=== PATIENT | female | born 1965 | race Caucasian/White ===

== ENCOUNTER → 2020-07-23 08:22 | Outpatient (CLI) | payer OTHER, SELFPAY ==
--- NOTE | 2020-07-23 | DI.MG.S_ITS ---
BILATERAL DIGITAL SCREENING MAMMOGRAM 3D/2D WITH CAD: 07/23/2020 CLINICAL: Routine screening. Family history of breast cancer. Comparison is made to exams dated: 10/20/2017 mammogram, 06/17/2016 mammogram, and 10/28/2014 mammogram - [facility]. The tissue of both breasts is heterogeneously dense. This may lower the sensitivity of mammography. Current study was also evaluated with a Computer Aided Detection (CAD) system. There are grouped fine calcifications in the right breast central to the nipple anterior depth. No other significant masses, calcifications, or other findings are seen in either breast. IMPRESSION: INCOMPLETE: NEEDS ADDITIONAL IMAGING EVALUATION The grouped fine calcifications in the right breast are indeterminate. Mediolateral, spot magnification, and additional views are recommended. This exam was interpreted at Station ID: [id number]. NOTE: For mammograms, a report in lay terms will be sent to the patient. Approximately 15% of breast malignancies will not be visualized mammographically. In the management of a palpable breast mass, a negative mammogram must not discourage biopsy of a clinically suspicious lesion. Electronically Signed By: Jaiden rainey/endy:07/23/2020 17:08:25 letter sent: Additional Imaging Needed ACR BI-RADS Category 0: Incomplete 3340F
== END ==
PROVIDERS: PCP Student in an Organized Health Care Education/Training Program; Referring Provider Student in an Organized Health Care Education/Training Program; Visit Provider Student in an Organized Health Care Education/Training Program
DX: Z12.31 Encounter for screening mammogram for malignant neoplasm of breast (principal); Z80.3 Family history of malignant neoplasm of breast
CPT/HCPCS: 77063; 77067

== ENCOUNTER → 2020-08-21 08:34 | Outpatient (CLI) | payer OTHER, SELFPAY ==
--- NOTE | 2020-08-21 | DI.MG.S_ITS ---
UNILATERAL RIGHT DIGITAL DIAGNOSTIC MAMMOGRAM 3D/2D WITH ADDITIONAL VIEWS: 08/21/2020 CLINICAL: Additional evaluation requested from prior study. Comparison is made to exams dated: 07/23/2020 mammogram - [facility], 10/20/2017 mammogram, and 06/17/2016 mammogram - [facility]. The tissue of right breast is heterogeneously dense. This may lower the sensitivity of mammography. There are grouped fine punctate calcifications in the right breast central to the nipple anterior depth. No other significant masses or calcifications are seen in the breast. IMPRESSION: PROBABLY BENIGN The grouped fine punctate calcifications in the right breast are probably benign. A follow-up mammogram in 6 months is recommended to demonstrate stability. This exam was interpreted at Station ID: [id number]. NOTE: For mammograms, a report in lay terms will be sent to the patient. Approximately 15% of breast malignancies will not be visualized mammographically. In the management of a palpable breast mass, a negative mammogram must not discourage biopsy of a clinically suspicious lesion. Electronically Signed By: Gricel hitchcock/:08/21/2020 09:20:23 letter sent: Followup Recommended ACR BI-RADS Category 3: Probably benign 3343F
== END ==
PROVIDERS: PCP Student in an Organized Health Care Education/Training Program; Referring Provider Student in an Organized Health Care Education/Training Program; Visit Provider Student in an Organized Health Care Education/Training Program
DX: R92.1 Mammographic calcification found on diagnostic imaging of breast (principal)
CPT/HCPCS: 77065; G0279

== ENCOUNTER → 2021-02-16 12:10 | Outpatient (CLI) | payer OTHER, SELFPAY ==
[2021-02-16] MEDS: COVID-19 VACC #1, MRNA(MOD) 100 MCG/0.5 ML VIAL IM (12:22)
== END ==
PROVIDERS: Visit Provider Internal Medicine
DX: Z23 Encounter for immunization (principal)
CPT/HCPCS: 0011A; 91301

== ENCOUNTER → 2021-03-17 09:32 | Outpatient (CLI) | payer OTHER, SELFPAY ==
[2021-03-17] MEDS: COVID-19 VACC #2, MRNA(MOD) 100 MCG/0.5 ML VIAL IM (09:39)
== END ==
PROVIDERS: PCP Student in an Organized Health Care Education/Training Program; Visit Provider Internal Medicine
DX: Z23 Encounter for immunization (principal)
CPT/HCPCS: 0012A; 91301

== ENCOUNTER → 2021-04-13 12:11 | Outpatient (CLI) | payer OTHER, SELFPAY ==
--- NOTE | 2021-04-13 | DI.MG.S_ITS ---
UNILATERAL RIGHT DIGITAL DIAGNOSTIC MAMMOGRAM 3D/2D SHORT-TERM FOLLOW-UP: 04/13/2021 CLINICAL: Short term follow up of the right breast. Comparison is made to exams dated: 08/21/2020 mammogram, 07/23/2020 mammogram - [facility], and 10/20/2017 mammogram - [facility]. The tissue of right breast is heterogeneously dense. This may lower the sensitivity of mammography. There are grouped fine punctate calcifications in the right breast central to the nipple anterior depth. No other significant masses or calcifications are seen in the breast. IMPRESSION: PROBABLY BENIGN The grouped fine punctate calcifications in the right breast are stable and probably benign. A follow-up mammogram in 6 months is recommended to demonstrate stability. Left breast mammogram will also be due. Exam findings were conveyed to the patient. This exam was interpreted at Station ID: [id number]. NOTE: For mammograms, a report in lay terms will be sent to the patient. Approximately 15% of breast malignancies will not be visualized mammographically. In the management of a palpable breast mass, a negative mammogram must not discourage biopsy of a clinically suspicious lesion. Electronically Signed By: Don Chua M.D. [facility] [place]:04/13/2021 13:13:47 letter sent: Followup Recommended ACR BI-RADS Category 3: Probably benign 3343F
== END ==
PROVIDERS: PCP Student in an Organized Health Care Education/Training Program; Referring Provider Student in an Organized Health Care Education/Training Program; Visit Provider Student in an Organized Health Care Education/Training Program
DX: R92.8 Other abnormal and inconclusive findings on diagnostic imaging of breast (principal); R92.1 Mammographic calcification found on diagnostic imaging of breast
CPT/HCPCS: 77065; G0279

== ENCOUNTER → 2021-09-16 09:17 | Outpatient (CLI) | payer OTHER, SELFPAY ==
--- NOTE | 2021-09-16 | DI.MG.S_ITS ---
BILATERAL DIGITAL DIAGNOSTIC MAMMOGRAM 3D/2D SHORT-TERM FOLLOW-UP: 09/16/2021 CLINICAL: Short term follow up of the right breast, due for bilateral imaging. Comparison is made to exams dated: 04/13/2021 mammogram, 08/21/2020 mammogram, and 07/23/2020 mammogram - [facility]. The tissue of both breasts is heterogeneously dense. This may lower the sensitivity of mammography. There are stable grouped fine punctate calcifications in the right breast central to the nipple anterior depth. No other significant masses, calcifications, or other findings are seen in either breast. IMPRESSION: PROBABLY BENIGN The stable grouped fine punctate calcifications in the right breast are probably benign. A follow-up mammogram in 12 months is recommended. This exam was interpreted at Station ID: [id number]. NOTE: For mammograms, a report in lay terms will be sent to the patient. Approximately 15% of breast malignancies will not be visualized mammographically. In the management of a palpable breast mass, a negative mammogram must not discourage biopsy of a clinically suspicious lesion. Electronically Signed By: Jones Cm M.D., jr/endy:09/16/2021 09:52:41 letter sent: Followup Recommended ACR BI-RADS Category 3: Probably benign 3343F
== END ==
PROVIDERS: PCP Student in an Organized Health Care Education/Training Program; Referring Provider Student in an Organized Health Care Education/Training Program; Visit Provider Student in an Organized Health Care Education/Training Program
DX: R92.8 Other abnormal and inconclusive findings on diagnostic imaging of breast (principal); R92.1 Mammographic calcification found on diagnostic imaging of breast
CPT/HCPCS: 77066; G0279

== ENCOUNTER → 2022-06-28 12:34 | Outpatient (CLI) | payer OTHER, SELFPAY ==
[2022-06-28 14:21] LABS: Influenza A - CEPHEID Flu A NEGATIVE (NEGATIVE); Influenza B - CEPHEID Flu B NEGATIVE (NEGATIVE)
[2022-06-28 14:31] LABS: COVID-19 CEPHEID PCR (VTM/NP) Negative (Negative)
== END ==
PROVIDERS: PCP Student in an Organized Health Care Education/Training Program; Visit Provider Student in an Organized Health Care Education/Training Program
DX: R11.0 Nausea (principal); J31.2 Chronic pharyngitis
CPT/HCPCS: 0240U; 87070; 87077; 87147

== ENCOUNTER → 2022-08-23 13:14 | Outpatient (CLI) | payer OTHER, SELFPAY ==
--- NOTE | 2022-08-23 | DI.RAD.S_ITS ---
PROCEDURE: XR CHEST 2V INDICATIONS: CHEST PAIN TECHNIQUE: 2 views of the chest were acquired. COMPARISON: None. FINDINGS: Surgical changes and devices: None. Lungs and pleura: Lungs are clear. No pleural effusions or pneumothorax. Mediastinum: Mediastinal contours are normal. Heart size is normal. Bones and chest wall: No suspicious bony abnormalities. Soft tissues appear unremarkable. IMPRESSION: No acute cardiopulmonary disease. Dictated by: Ricardo Lyon M.D. on 08/23/2022 at 17:00 Approved by: Ricardo Lyon M.D. on 08/23/2022 at 17:00
== END ==
PROVIDERS: PCP Family Medicine; Referring Provider Internal Medicine; Visit Provider Internal Medicine
DX: R07.89 Other chest pain (principal)
CPT/HCPCS: 71046

== ENCOUNTER → 2022-09-21 08:16 | Outpatient (CLI) | payer OTHER, SELFPAY | PROVIDERS: PCP Family Medicine; Referring Provider Family Medicine; Visit Provider Family Medicine | DX: Z12.31 Encounter for screening mammogram for malignant neoplasm of breast (principal) ==

== ENCOUNTER → 2022-09-22 07:40 | Outpatient (CLI) | payer OTHER, SELFPAY ==
--- NOTE | 2022-09-22 | DI.MG.S_ITS ---
BILATERAL DIGITAL DIAGNOSTIC MAMMOGRAM 3D/2D SHORT-TERM FOLLOW-UP: 09/22/2022 CLINICAL: Short term follow up of the left breast, due for bilateral imaging. Comparison is made to exams dated: 09/16/2021 mammogram, 04/13/2021 mammogram, and 08/21/2020 mammogram - [facility]. Both breasts are heterogeneously dense, which may obscure small masses (category c / 51-75% glandular tissue). There are stable grouped fine punctate calcifications in the right breast central to the nipple anterior depth. No other significant masses, calcifications, or other findings are seen in either breast. IMPRESSION: BENIGN There is no mammographic evidence of malignancy. Stable grouped fine punctate calcifications in the right breast central to the nipple anterior depth have demonstrated two years of stability and is consistent with a benign process. Return to annual mammogram screening schedule is recommended. Findings and recommendations were conveyed to the patient during today's evaluation. Based on the Tyrer Cuzick model (a risk assessment model) the patient's lifetime risk is 12.9% and her 10 year risk is 3.7%. According to the ACR, ACS, and NCCN guidelines, an annual breast MRI exam along with mammogram is recommended if the patient's lifetime risk is 20% or greater. This exam was interpreted at Station ID: [id number]. NOTE: For mammograms, a report in lay terms will be sent to the patient. Approximately 15% of breast malignancies will not be visualized mammographically. In the management of a palpable breast mass, a negative mammogram must not discourage biopsy of a clinically suspicious lesion. Electronically Signed By: Dwight Rodrigez M.D. aty/:09/22/2022 08:44:55 letter sent: Normal Exam ACR BI-RADS Category 2: Benign Finding(s) 3342F
== END ==
PROVIDERS: PCP Family Medicine; Referring Provider Family Medicine; Visit Provider Family Medicine
DX: R92.8 Other abnormal and inconclusive findings on diagnostic imaging of breast (principal); R92.1 Mammographic calcification found on diagnostic imaging of breast
CPT/HCPCS: 77066; G0279

== ENCOUNTER → 2022-10-12 14:33 | Outpatient (CLI) | payer OTHER, SELFPAY ==
[2022-10-12 15:34] LABS: COVID19 -Nasal RAPID Negative (Negative)
--- NOTE | 2022-10-13 08:56 | DI.NM.S_ITS ---
DATE OF SERVICE: 10/12/2022 PROCEDURE: Exercise treadmill stress testing without imaging. ORDERING PROVIDER: PREETI Bateman. INDICATIONS: The patient is a 56-year-old female with exertional dyspnea and atypical chest discomfort, who requires preoperative evaluation prior to surgery. FINDINGS: 1. The patient was able to exercise for 6 minutes, 27 seconds on a standard Gabino protocol suggesting mildly-moderately reduced exercise capacity with an DARYL of +11 %, achieving 7.0 METs. 2. She had a slightly accentuated heart rate response to exercise with a resting heart rate of around 100 BPM increasing to 124 BPM after 1 minute of exercise, reaching a maximum heart rate of 169 BPM (102% of her predicted maximum). She had a normal blood pressure response. 3. She had no chest discomfort or anginal symptoms. 4. Her resting ECG shows sinus rhythm with normal ST segments. There are no significant ST segment shifts or arrhythmias with stress. IMPRESSION: 1. Normal exercise treadmill study for ischemia. 2. Mild-moderately reduced exercise capacity without angina or arrhythmias. She had an accentuated heart rate response to exercise, suggesting probable cardiovascular deconditioning. Hannah Rios - ELIZABETH/tonia/JOSE ENRIQUE doc#: [id number]/job#: [id number] dd: 10/12/2022 16:56:00 dt: 10/12/2022 17:22:00 DICTATING /COPIES TO: Francisco Austin MD; PREETI Bateman COPIES MNE: TRINY;
== END ==
PROVIDERS: Specialist; PCP Family Medicine; Referring Provider Internal Medicine; Visit Provider Internal Medicine
DX: R07.89 Other chest pain (principal); R06.00 Dyspnea, unspecified; Z13.820 Encounter for screening for osteoporosis; Z78.0 Asymptomatic menopausal state; Z20.822 Contact with and (suspected) exposure to COVID-19
CPT/HCPCS: 77080; 87635; 93017

== ENCOUNTER → 2022-10-25 13:45 | Outpatient (ROUT) | payer OTHER, SELFPAY ==
[2022-10-25 14:56] LABS: COVID-19 CEPHEID PCR (VTM/NP) Negative (Negative)
== END ==
PROVIDERS: Visit Provider Otolaryngology
DX: Z20.822 Contact with and (suspected) exposure to COVID-19 (principal)
CPT/HCPCS: U0003; U0005

== ENCOUNTER 2022-10-27 08:24 | Day surgery (SDC) | payer OTHER, SELFPAY ==
[2022-10-26 10:45] VITALS: BMI 34.8
[2022-10-27 09:05] VITALS: BP 129/83; PULSE 91; RESP 16; TEMP 36.5; O2SAT 99; BMI 35.2
--- NOTE | 2022-10-27 10:23 | PM.PREOP ---
Pre-operative Note Interval Note History & Physical reviewed/Exam performed by Physician: Yes Changes to H&P: Yes H&P completed within 30 days and has changed as indicated here:: New dry cough over the last 48 hours but nonproductive, no fever, mild sore throat consistent with tonsillitis in the past. COVID negative. After discussion of the material risks benefits complications and alternatives, patient feel strongly she would like to proceed with surgery as scheduled.
--- NOTE | 2022-10-27 10:25 | P.OP_ITS ---
Operative Date/Time/Diagnoses Date of procedure: 10/27/22 Pre-op diagnosis: Chronic tonsillitis, tonsil stones, throat pain, JORGE ALBERTO, factor 5 Leiden Post-op diagnosis: same Procedure & Clinicians Procedure: Tonsillectomy Same procedure as scheduled: Yes Indications: 57-year-old female with above diagnoses incompletely managed with medical therapy presents for the above procedure. Following discussion of the material risks benefits complications and alternatives, she elected to proceed. Surgeon: Tj Mccall Click Yes if Unassisted: Yes Anesthesia Type: General and Local Operative Notes Findings: 2+ tonsils with stones, small abscess within RIGHT, no significant adenoid tissue, intact palate, single uvula Estimated Blood Loss (mL): 5 Procedure in detail: Following identification and confirmation of consent the patient was brought to the operating room suite and placed in the supine position. General endotracheal anesthesia was administered. A head wrap, shoulder roll, and mouth gag were placed and a red rubber catheter was inserted through the nostril and out the mouth to retract the soft palate. There was no significant adenoid t issue. The left tonsil was retracted medially and suction electrocautery on a setting of 30 was used to dissect the tonsil in a subcapsular plane, followed by hemostasis with the same. This process was repeated on the right side with identical findings. The tonsillar fossae were superficially infiltrated bilaterally with 1% lidocaine 1 100,000 epinephrine. Mouth gag and rubber catheter were removed and the patient was extubated in the operating room and taken to the recovery room in stable condition without known complication. Complications: none Post-operative Condition: stable Disposition: same day surgery Plan for aftercare: Push fluids, alternate Tylenol and Advil every 3 hours for baseline pain control, oxycodone for breakthrough pain. Soft diet 2 full weeks, no heavy lifting or straining 2 weeks.
[2022-10-27] MEDS: LACTATED RINGERS 1,000 ML 42 ML IV (10:30)
--- NOTE | 2022-10-27 10:48 | SUR.OPER ---
Supine on padded OR bed, head on donut pillow, arms secured on padded arm boards at <90 degrees abduction, legs uncrossed, safety belt at thigh,
[2022-10-27] MEDS: LIDOCAINE 1% W/EPI 20 ML INJ (10:53)
[2022-10-27 11:09] VITALS: BP 142/85; PULSE 94; RESP 16; TEMP 36.3; O2SAT 98
[2022-10-27 11:18] VITALS: BP 117/74; PULSE 92; RESP 16; O2SAT 98
[2022-10-27 11:25] VITALS: BP 120/70; PULSE 84; RESP 16; O2SAT 98
[2022-10-27] MEDS: OXYCODONE/ACETAMINOPHEN 5/325 TABLET 1 TAB PO (11:32)
[2022-10-27 11:40] VITALS: BP 117/60; PULSE 70; RESP 16; TEMP 36.8; O2SAT 98
[2022-10-27 11:56] VITALS: BP 129/83; PULSE 91; RESP 16; TEMP 36.5; O2SAT 99
== END 2022-10-27 12:06 | disposition home or self-care (01) ==
PROVIDERS: PCP Family Medicine; Referring Provider Otolaryngology; Visit Provider Otolaryngology
PROC: (CPT 42826; principal; 2022-10-27 09:30)
DX: J35.01 Chronic tonsillitis (principal); J35.8 Other chronic diseases of tonsils and adenoids; G47.33 Obstructive sleep apnea (adult) (pediatric); D68.51 Activated protein C resistance
CPT/HCPCS: 42826; J0330; J1100; J2250; J2405; J2704; J3010

== ENCOUNTER → 2023-03-12 11:11 | Outpatient (CLI) | payer OTHER, SELFPAY ==
[2023-03-12 11:59] LABS: Influenza A - CEPHEID Flu A NEGATIVE (NEGATIVE); Influenza B - CEPHEID Flu B NEGATIVE (NEGATIVE); Respiratory Syncytial Virus Negative (Negative)
[2023-03-12 12:00] LABS: COVID-19 CEPHEID 4-PLEX PCR Negative (Negative)
== END ==
PROVIDERS: PCP Family Medicine; Visit Provider Nurse Practitioner Family
DX: J02.9 Acute pharyngitis, unspecified (principal)
CPT/HCPCS: 0241U; 87070

== ENCOUNTER → 2023-11-02 10:03 | Outpatient (CLI) | payer OTHER, SELFPAY ==
--- NOTE | 2023-11-02 | DI.MG.S_ITS ---
BILATERAL DIGITAL SCREENING MAMMOGRAM 3D/2D WITH CAD: 11/02/2023 CLINICAL: Routine screening. Family history of breast cancer. Comparison is made to exams dated: 09/22/2022 mammogram, 09/16/2021 mammogram, and 07/23/2020 mammogram - [facility]. Both breasts are heterogeneously dense, which may obscure small masses (category c / 51-75% glandular tissue). Current study was also evaluated with a Computer Aided Detection (CAD) system. There are benign post operative findings in the left breast. No significant masses, calcifications, or other findings are seen in either breast. There has been no significant interval change. IMPRESSION: BENIGN There is no mammographic evidence of malignancy. A 1 year screening mammogram is recommended. Based on the Tyrer Cuzick model (a risk assessment model) the patient's lifetime risk is 14.7% and her 10 year risk is 4.8%. According to the ACR, ACS, and NCCN guidelines, an annual breast MRI exam along with mammogram is recommended if the patient's lifetime risk is 20% or greater. This exam was interpreted at Station ID: [id number]. NOTE: For mammograms, a report in lay terms will be sent to the patient. Approximately 15% of breast malignancies will not be visualized mammographically. In the management of a palpable breast mass, a negative mammogram must not discourage biopsy of a clinically suspicious lesion. Electronically Signed By: Don beaver/endy:11/02/2023 16:47:49 letter sent: Normal Exam ACR BI-RADS Category 2: Benign Finding(s) 3342F
== END ==
PROVIDERS: PCP Family Medicine; Referring Provider Family Medicine; Visit Provider Family Medicine
DX: Z12.31 Encounter for screening mammogram for malignant neoplasm of breast (principal); Z80.3 Family history of malignant neoplasm of breast
CPT/HCPCS: 77063; 77067

== ENCOUNTER → 2024-09-26 09:02 | Outpatient (CLI) | payer BC, SELFPAY ==
[2024-09-26 10:24] LABS: Add Manual Diff / Slide Review NO; Basophils Absolute Auto 0 /uL (0-100); Basophils Percent Auto 0.7 % (0-2); Eosinophils Absolute Auto 100 /uL (0-450); Eosinophils Percent Auto 1.5 % (2-4); Hematocrit 40.5 % (36-46); Hemoglobin 13.6 g/dL (12.0-16.0); Lymphocytes Absolute Auto 1700 /uL (1100-4500); Lymphocytes Percent Auto 24.1 % (25-40); Mean Corpuscular HGB Conc 33.7 % (30-36); Mean Corpuscular Hemoglobin 30.2 PG (26-34); Mean Corpuscular Volume 89.7 fL (80-100); Monocytes Absolute Auto 600 /uL (0-900); Monocytes Percent Auto 9.3 % (3-14); Neutrophils Absolute Auto 4400 /uL (1500-7000); Neutrophils Percent Auto 64.4 % (50-75); Platelet Count 365 X10^3/uL (150-400); Red Blood Cell Count 4.51 X10^6/uL (4.0-5.2); Red Cell Distribution Width 13.2 % (11.6-14.8); White Blood Cell Count 6.9 X10^3/uL (4.5-11.0)
[2024-09-26 10:29] LABS: Hemoglobin A1C% w Est Avg Glu 5.3 % (4.0-6.0)
[2024-09-26 10:46] LABS: Alanine Aminotransferase 18 IU/L (<35); Albumin 4.5 g/dL (3.5-5.0); Albumin Globulin Ratio 1.6 (1.0-2.8); Alkaline Phosphatase 51 U/L (38-126); Aspartate Aminotransferase 26 IU/L (14-36); BUN Creatinine Ratio 10.7 (6-22); Bilirubin Total 0.5 mg/dL (0.2-1.3); Blood Urea Nitrogen 8 mg/dL (7-17); Calcium 10.2 mg/dL (8.4-10.2); Carbon Dioxide 27 mmol/L (22-32); Chloride 103 mmol/L (98-107); Cholesterol 163 mg/dL (140-199); Estimated Glomerular Filt Rate > 60 mL/min (>60); Globulin 2.8 g/dL (1.7-4.1); Glucose 91 mg/dL (70-100); HDL Cholesterol 62 mg/dL (40-60); HEMOLYSIS < 15 (0-50); LDL Cholesterol Calculated 82 mg/dL (<100); Potassium 4.9 mmol/L (3.4-5.1); Sodium 136 mmol/L (137-145); Total Protein 7.3 g/dL (6.3-8.2); Triglycerides 95 mg/dL (35-150)
[2024-09-26 11:03] LABS: Follicle Stimulating Hormone 35.1 mIU/mL; Luteinizing Hormone 11.1 mIU/mL
[2024-09-26 11:04] LABS: Free T4, Direct Thyroxine 0.94 ng/dL (0.78-2.19)
[2024-09-26 11:18] LABS: Thyroid Stimulating Hormone 1.14 uIU/mL (0.47-4.68)
== END ==
PROVIDERS: PCP Family Medicine; Referring Provider Family Medicine; Visit Provider Family Medicine
DX: Z00.00 Encounter for general adult medical examination without abnormal findings (principal); E28.2 Polycystic ovarian syndrome; Z13.0 Encounter for screening for diseases of the blood and blood-forming organs and certain disorders involving the immune mechanism
CPT/HCPCS: 36415; 80053; 80061; 83001; 83002; 83036; 84439; 84443; 85025

== ENCOUNTER → 2024-10-31 11:19 | Outpatient (CLI) | payer BC, SELFPAY | PROVIDERS: PCP Family Medicine; Visit Provider Physician Assistant Medical | DX: R30.0 Dysuria (principal) | CPT/HCPCS: 87077; 87086 ==

== ENCOUNTER → 2025-02-24 08:30 | Outpatient (CLI) | payer BC, SELFPAY ==
--- NOTE | 2025-02-24 08:32 | DI.MG.S_ITS ---
MM screening mammo BI: 02/24/2025. BI-RADS: 2 CLINICAL: 59-year old female for bilateral screening mammogram. Tyrer-Cuzick lifetime risk of 15.2%. No personal or first-degree family history of breast cancer. Current reported family history of breast cancer: maternal grandmother. The patient had a prior left breast biopsy. PRIOR EXAMS 11/02/2023, 09/22/2022, 09/16/2021, 04/13/2021, 08/21/2020, 07/23/2020. MAMMOGRAPHY TECHNIQUE: 2D and 3D (tomosynthesis) digital mammographic views obtained, with additional images as needed for full coverage. Current study was also evaluated with a Computer Aided Detection (CAD) system. DENSITY C. The breasts are heterogeneously dense, which may obscure small masses. MAMMOGRAPHY FINDINGS Right: No suspicious mass, asymmetry, microcalcification, or other abnormality seen. No significant change from comparison. Left: Benign-appearing asymmetry noted on the left. There are no suspicious masses, calcifications, or other findings in the breast. No significant change from comparison. IMPRESSION: Right * No evidence of malignancy. Left * No evidence of malignancy with benign findings. RECOMMENDATIONS Bilateral * Annual screening mammography. OVERALL ASSESSMENT CATEGORY BI-RADS-2: Benign. The [employer] recommends annual screening mammography beginning at age 40 for women with average risk of breast cancer. ELECTRONICALLY SIGNED: Morenita Rose M.D. on 02/24/2025 at 05:37:55 PM PT Interpreting Station ID: [id number]
== END ==
PROVIDERS: PCP Family Medicine; Referring Provider Family Medicine; Visit Provider Family Medicine
DX: Z12.31 Encounter for screening mammogram for malignant neoplasm of breast (principal); Z80.3 Family history of malignant neoplasm of breast; R92.333 Mammographic heterogeneous density, bilateral breasts
CPT/HCPCS: 77063; 77067

== ENCOUNTER → 2025-04-14 15:01 | Outpatient (CLI) | payer BC, SELFPAY ==
--- NOTE | 2025-04-14 15:05 | DI.US.S_ITS ---
PROCEDURE: US PELVIC COMPLETE INDICATIONS: Vaginal bleeding TECHNIQUE: Real-time scanning was performed of the pelvic organs, with image documentation. Additional endovaginal scanning was necessary due to incomplete visualization of the adnexal and endometrial structures by transabdominal scanning. COMPARISON: None. FINDINGS: Uterus: Uterus is anteverted and normal in size at 6.8 x 3.7 x 5.1 cm. The myometrium is homogeneous. The endometrium measures 10 mm combined thickness. No focal intrauterine abnormality seen. Minimal fluid seen within the endocervical canal. Ovaries: The right ovary measures 3.3 x 1.8 x 1.8 cm, with a calculated ovarian volume of 5.6 cc. The left ovary measures 2.2 x 2.6 x 1.0 cm, with a calculated ovarian volume of 3.1 cc. The ovaries have a normal sonographic appearance. Less than 12 follicles can be seen in each ovary. There is a 1.8 x 1.7 x 1.3 cm complex cyst with peripheral vascularity in the right ovary. No suspicious solid adnexal masses are seen. Other: No pathologic free abdominal or pelvic fluid. IMPRESSION: Pelvic ultrasound without acute sonographic abnormalities. A 1.8 cm complex cyst in the right ovary. Recommend follow-up pelvic ultrasound in 6-12 weeks. We strive to produce accurate, complete, and clear reports of imaging services. To assist us in improving patient care, this report was composed using standard report templates and voice recognition software. Therefore, it may contain abnormal punctuation, insertions and/or omissions. Occasional wrong-word or sound-alike substitutions may occur. Though we review the report and make efforts to correct it, we do recommend that the report be read carefully in proper context to recognize any text inaccuracies. Dictated by: Dwight Rodrigez M.D. on 04/14/2025 at 23:18 Approved by: Dwight Rodrigez M.D. on 04/14/2025 at 23:22
== END ==
PROVIDERS: PCP Family Medicine; Referring Provider Family Medicine; Visit Provider Family Medicine
DX: N93.9 Abnormal uterine and vaginal bleeding, unspecified (principal); N83.291 Other ovarian cyst, right side
CPT/HCPCS: 76830; 76856

== ENCOUNTER 2025-04-28 14:31 | Emergency (ER) | payer BC, SELFPAY ==
[2025-04-28 15:08] VITALS: BP 127/72; PULSE 128; RESP 18; TEMP 37.3; O2SAT 100; BMI 23.1
--- NOTE | 2025-04-28 15:10 | EKG_ITS ---
[place] [id number] [place] [id number] Test Date: 2025-04-28 Pat Name: Hannah Chapin Department: [facility] Room: Gender: Female Administrative Resident: MEI : 1965 Requested By: Order Number: [id number] Reading MD: Walker Glynn MD Measurements Intervals [place] Rate: 114 P: 45 MD: 128 QRS: 39 QRSD: 72 T: 18 QT: 336 QTc: 463 Interpretive Statements Sinus tachycardia with premature atrial complexes Inferior infarct , age undetermined Anterior infarct , age undetermined NO PRIOR TRACING Electronically Signed On 04-28-2025 17:47:44 PDT by Walker Glynn MD
--- NOTE | 2025-04-28 15:10 | DI.RAD.S_ITS ---
PROCEDURE: XR CHEST 1V INDICATIONS: Chest Pain TECHNIQUE: One view of the chest was acquired. COMPARISON: [facility], CR, XR CHEST 2V, 08/23/2022, 13:46. FINDINGS AND IMPRESSION: No airspace consolidation or pleural effusion on this single view study. Normal heart size Degenerative osseous changes. Dictated by: Víctor Sherman M.D. on 04/28/2025 at 15:58 Approved by: Víctor Sherman M.D. on 04/28/2025 at 15:58
[2025-04-28 15:41] LABS: Add Manual Diff / Slide Review NO; Basophils Absolute Auto 100 /uL (0-100); Basophils Percent Auto 0.9 % (0-2); Eosinophils Absolute Auto 100 /uL (0-450); Eosinophils Percent Auto 1.7 % (2-4); Hematocrit 39.9 % (36-46); Hemoglobin 13.4 g/dL (12.0-16.0); Lymphocytes Absolute Auto 2200 /uL (1100-4500); Mean Corpuscular HGB Conc 33.7 % (30-36); Mean Corpuscular Hemoglobin 30.3 PG (26-34); Monocytes Absolute Auto 500 /uL (0-900); Monocytes Percent Auto 6.8 % (3-14); Neutrophils Absolute Auto 4300 /uL (1500-7000); Neutrophils Percent Auto 59.6 % (50-75); Platelet Count 388 X10^3/uL (150-400); Red Blood Cell Count 4.43 X10^6/uL (4.0-5.2); Red Cell Distribution Width 14.3 % (11.6-14.8); White Blood Cell Count 7.2 X10^3/uL (4.5-11.0)
[2025-04-28 15:45] LABS: INR 0.9 (0.9-1.3); Prothrombin Time 10.6 SECONDS (9.4-12.5)
[2025-04-28 15:48] LABS: PTT Partial Thromboplastin Tim 34 SECONDS (25.1-36.5)
[2025-04-28 15:50] LABS: Alanine Aminotransferase 18 IU/L (<35); Albumin 4.8 g/dL (3.5-5.0); Albumin Globulin Ratio 1.7 (1.0-2.8); Alkaline Phosphatase 52 U/L (38-126); Aspartate Aminotransferase 28 IU/L (14-36); BUN Creatinine Ratio 11.5 (6-22); Bilirubin Total 0.5 mg/dL (0.2-1.3); Blood Urea Nitrogen 7 mg/dL (7-17); Calcium 9.4 mg/dL (8.4-10.2); Carbon Dioxide 27 mmol/L (22-32); Chloride 105 mmol/L (98-107); Creatine Kinase 58 U/L (30-135); Estimated Glomerular Filt Rate > 60 mL/min (>60); Globulin 2.8 g/dL (1.7-4.1); Glucose 97 mg/dL (70-99); HEMOLYSIS < 15 (0-50); Lipase 152 U/L (23-300); Magnesium 2.1 mg/dL (1.6-2.3); Potassium 3.6 mmol/L (3.4-5.1); Sodium 140 mmol/L (137-145); Total Protein 7.6 g/dL (6.3-8.2)
[2025-04-28 16:02] LABS: NT-proBNP (BNP-Adult 18+) 213 pg/mL (<125); Troponin I < 0.012 ng/mL (0.01-0.034)
--- NOTE | 2025-04-28 20:04 | ED.ARRPALP ---
HPI - Arrhythmia/Palpitations General Chief Complaint: Arrhythmia/Palpitations Stated Complaint: Fast heart rate today Time Seen by Provider: 04/28/25 17:44 Source: patient Mode of arrival: Ambulatory Related Data Home Medications ?Medication ?Instructions ?Recorded ?Confirmed atorvastatin 10 mg tablet 10 mg PO BEDTIME 10/26/22 10/31/24 diphenhydramine HCl 25 mg tablet 25 mg PO BEDTIME PRN Sleep 10/26/22 10/31/24 fluticasone propionate 50 1 spray intranasal DAILY 10/26/22 10/31/24 mcg/actuation nasal spray,suspension metoprolol succinate 25 mg 25 mg PO DAILY 10/26/22 10/31/24 tablet,extended release 24 hr spironolactone 25 mg tablet 25 mg PO DAILY 10/26/22 10/31/24 clonidine See Rx Instructions .Route .COMPLEX 10/27/22 10/31/24 clonazepam 0.5 mg tablet mg PO 10/31/24 10/31/24 guanfacine 2 mg tablet 2 mg PO DAILY 10/31/24 10/31/24 metformin 500 mg tablet,extended 500 mg PO 3XD 10/31/24 10/31/24 release 24 hr sertraline 25 mg tablet 25 mg PO DAILY 10/31/24 10/31/24 trazodone 50 mg tablet 50 mg PO ONCE PM 10/31/24 10/31/24 Previous Rx's ?Medication ?Instructions ?Recorded ciprofloxacin HCl 500 mg tablet 500 mg PO Q12H #14 tabs 10/31/24 (Cipro) phenazopyridine 200 mg tablet 200 mg PO TID PRN pain 6 doses #6 10/31/24 (Pyridium) tabs Allergies Allergy/AdvReac Type Severity Reaction Status Date / Time sumatriptan (From Imitrex) Allergy Severe Joint Pain Verified 04/28/25 15:12 coconut Allergy Intermediate Weakness Verified 04/28/25 15:12 cafagot Allergy Severe Joint Pain Uncoded 04/28/25 15:12 Patient History Medical History (Updated 04/28/25 @ 17:47 by Myrna Srinivasan RN) Tonsil stone Strep tonsillitis (06/2022) PCOS (polycystic ovarian syndrome) History of blood clots Depression Anxiety Tinnitus Factor V Leiden COVID-19 virus infection (06/2022) GERD (gastroesophageal reflux disease) JORGE ALBERTO on CPAP Surgical History (System 10/27/22 @ 14:32 by Pebbles Hirsch) Hx of foot surgery Social History (System 10/27/22 @ 14:32 by Pebbles Hirsch) household members: spouse Exam Initial Vital Signs Initial Vital Signs: Vital Signs Temperature 99.1 F 04/28/25 15:08 Pulse Rate 128 H 04/28/25 15:08 Respiratory Rate 18 04/28/25 15:08 Blood Pressure 127/72 04/28/25 15:08 Pulse Oximetry 100 04/28/25 15:08 Oxygen Delivery Method Room Air 04/28/25 15:08 Course Orders Ordered: ED Orders 04/28/25 15:10 XR chest 1V Stat EKG-12 Lead Stat 04/28/25 15:22 Complete Blood Count AUTO DIFF Stat Comprehensive Metabolic Panel Stat Lipase Stat Magnesium Stat NT-proBNP (BNP-Adult 18+) Stat PTT Partial Thromboplastin Nicholas Stat Prothrombin Time INR Stat Troponin & CK Cardiac Panel Stat Discontinued Medications Aspirin (Aspirin 81 Mg Chew Tab) 324 mg PO NOW ONE Stop: 04/28/25 15:11 Vital Signs Vital signs: Vital Signs - 8 hr 04/28/25 15:08 Temperature 99.1 F Pulse Rate 128 H Respiratory Rate 18 Blood Pressure 127/72 Pulse Oximetry 100 Oxygen Delivery Method Room Air MDM - Arrhythmia/Palpitations Lab Data 04/28/25 15:22 04/28/25 15:22 Labs: Lab Results 04/28/25 Range/Units 15:22 WBC 7.2 (4.5-11.0) X10^3/uL RBC 4.43 (4.0-5.2) X10^6/uL Hgb 13.4 (12.0-16.0) g/dL Hct 39.9 (36-46) % MCV 90.0 (80-100) fL MCH 30.3 (26-34) PG MCHC 33.7 (30-36) % RDW 14.3 (11.6-14.8) % Plt Count 388 (150-400) X10^3/uL Neut % (Auto) 59.6 (50-75) % Lymph % (Auto) 31.0 (25-40) % Mcnairy % (Auto) 6.8 (3-14) % Eos % (Auto) 1.7 L (2-4) % Baso % (Auto) 0.9 (0-2) % Neut # (Auto) 4300 (2951-1830) /uL Lymph # (Auto) 2200 (3645-5933) /uL Mcnairy # (Auto) 500 (0-900) /uL Eos # (Auto) 100 (0-450) /uL Baso # (Auto) 100 (0-100) /uL PT 10.6 (9.4-12.5) SECONDS INR 0.9 (0.9-1.3) APTT 34 (25.1-36.5) SECONDS Sodium 140 (137-145) mmol/L Potassium 3.6 (3.4-5.1) mmol/L Chloride 105 (98-107) mmol/L Carbon Dioxide 27 (22-32) mmol/L BUN 7 (7-17) mg/dL Creatinine 0.61 (0.52-1.04) mg/dL Estimated GFR > 60 (>60) mL/min BUN/Creatinine Ratio 11.5 (6-22) Glucose 97 (70-99) mg/dL Calcium 9.4 (8.4-10.2) mg/dL Magnesium 2.1 (1.6-2.3) mg/dL Total Bilirubin 0.5 (0.2-1.3) mg/dL AST 28 (14-36) IU/L ALT 18 (<35) IU/L Alkaline Phosphatase 52 (38-126) U/L Total Creatine Kinase 58 (30-135) U/L Troponin I < 0.012 (0.01-0.034) ng/mL NT-Pro-B Natriuret Pep 213 H (<125) pg/mL Total Protein 7.6 (6.3-8.2) g/dL Albumin 4.8 (3.5-5.0) g/dL Globulin 2.8 (1.7-4.1) g/dL Albumin/Globulin Ratio 1.7 (1.0-2.8) Lipase 152 (23-300) U/L [facility] Narrative Medical decision making narrative: Labs show normal hemoglobin, platelets and white count. Coags are normal, electrolytes BUN creatinine normal. Troponins negative BNP is 213. Lipase is 152. Chest x-ray shows no acute change. Sinus tach premature atrial complexes rate of 114 UT 128 QRS is 72 QTC of 463. No acute ST changes. Patient left without being seen. Discharge Plan Departure Patient Disposition: Left Without Being Seen Clinical Impression: Patient left without being seen Prescriptions: No Action clonazepam 0.5 mg tablet PO metformin 500 mg tablet extended release 24 hr 500 mg PO 3XD guanfacine 2 mg tablet 2 mg PO DAILY sertraline 25 mg tablet 25 mg PO DAILY trazodone 50 mg tablet 50 mg PO ONCE PM phenazopyridine [Pyridium] 200 mg tablet 200 mg PO TID PRN (Reason: pain) Qty: 6 0RF ciprofloxacin HCl [Cipro] 500 mg tablet 500 mg PO Q12H Qty: 14 0RF atorvastatin 10 mg Tablet 10 mg PO BEDTIME spironolactone 25 mg Tablet 25 mg PO DAILY diphenhydramine HCl 25 mg Tablet 25 mg PO BEDTIME PRN (Reason: Sleep) metoprolol succinate 25 mg Tablet Extended Release 24 Hr 25 mg PO DAILY fluticasone propionate 50 mcg/actuation Ray,Suspension 1 spray INTRANASAL DAILY Rx Instructions: administer into each nostril clonidine See Rx Instructions .ROUTE .COMPLEX Rx Instructions: depression
== END 2025-04-28 17:47 | disposition left against medical advice (07) ==
PROVIDERS: Emergency Provider Emergency Medicine; PCP Family Medicine
DX: R00.0 Tachycardia, unspecified (principal)
CPT/HCPCS: 71045; 80053; 82550; 83690; 83735; 83880; 84484; 85025; 85610; 85730; 93005; 93010; 99281

== ENCOUNTER → 2025-05-08 07:56 | Outpatient (CLI) | payer BC, SELFPAY ==
--- NOTE | 2025-05-08 07:57 | DI.ECHO.S_ITS ---
[facility] : : [id number] : : [place] : : [id number] : : Phone: [phone] Echocardiogram Report + + :Name: ANNABELLA GARCIA Study Date: 05/08/2025 Height: 64.5 in: :[facility] ReadingLocation: Weight: 139 lb : : Gender: Female BSA: 1.7 m2 : :: 1965 Age: 59 yrs BP: 117/70 mmHg: :Reason For Study: ELEVATED BNP LEVELS : :Ordering Physician: ZARIA : :RODDY Performed By: Janett Pro : :Referring: RODDY ENCISO : + + Interpretation Summary The ejection fraction is estimated to be 55-60%. Diastolic parameters suggest probable normal left ventricular diastolic function and normal filling pressures. The right ventricle is normal in size and function. There is mild mitral regurgitation. There is mild aortic regurgitation. There is mild tricuspid regurgitation. Pulmonary artery pressures cannot be estimated because of the lack of a measurable TR jet velocity but the IVC suggests a CVP of around 3 mmHg. The ascending aorta is at the upper limits of normal in size. Procedure: A two-dimensional transthoracic echocardiogram with color flow and Doppler was performed. The study quality was technically adequate. There is no prior echocardiogram noted for this patient. The patient was in sinus rhythm with heart rates between 56-62 bpm during the exam. Left Ventricle: The left ventricle is normal in size and wall thickness. The ejection fraction is estimated to be 55-60%. Diastolic parameters suggest probable normal left ventricular diastolic function and normal filling pressures. Right Ventricle: The right ventricle is normal in size and function. Atria: The left atrial size is normal. Right atrial size is normal. There is no Doppler evidence for an interatrial shunt. Mitral Valve: The mitral valve leaflets appear mildly thickened, but open well. There is mild mitral regurgitation. Aortic Valve: The aortic valve is trileaflet. The aortic valve opens well. There is no aortic valve stenosis. There is mild aortic regurgitation. Tricuspid Valve: The tricuspid valve leaflets are thin and pliable. There is mild tricuspid regurgitation. Pulmonary artery pressures cannot be estimated because of the lack of a measurable TR jet velocity but the IVC suggests a CVP of around 3 mmHg. Pulmonic Valve: The pulmonic valve leaflets are thin and pliable; valve motion is normal. There is mild pulmonic regurgitation. Great Vessels: The aortic root is borderline dilated. The ascending aorta is at the upper limits of normal in size. The IVC is of normal diameter and collapses greater than 50% with a sniff. This suggests a low right atrial pressure of 3 mm Hg. Pericardium/ Pleura There is no pericardial effusion. There is no pleural effusion. MMode/2D Measurements & Calculations LVIDd: 4.7 cm LVOT diam: 2.1 cm LVIDs: 2.9 cm Ao root diam: 3.9 cm FS: 37.0 % asc Aorta Diam: 3.8 cm EPSS: 0.19 cm Ao Arch Diam (Prox Trans): 2.9 cm IVSd: 0.78 cm LVPWd: 0.82 cm LV loyola. diameter/BSA (cm/m^2): 2.8 LV sys. diameter/BSA (cm/m^2): 1.7 LA A2 area: 20.2 cm2 RA long axis: 5.3 cm LA A4 area: 14.0 cm2 RA area: 12.3 cm2 LA length (vol): 4.7 cm RA vol: 24.3 ml LA vol: 51.3 ml RA : 14.4 ml/m2 LA vol index: 30.4 ml/m2 IVC diam: 1.2 cm RVD1 (basal): 3.2 cm RVD2 (mid): 3.4 cm TAPSE: 1.7 cm Doppler Measurements & Calculations Ao V2 max: 138.3 cm/sec LVOT Max [place]: 104.5 cm/sec Ao V2 mean: 93.0 cm/sec LV V1 max P.5 mmHg Ao max P.7 mmHg LV V1 VTI: 22.9 cm Ao mean P.9 mmHg ADDY(I,D): 2.6 cm2 Ao V2 VTI: 30.5 cm ADDY(V,D): 2.6 cm2 sev ratio: 0.75 ADDY indexed to BSA (cm^2/m^2): 1.5 AI P1/2t: 585.4 msec AI dec slope: 221.0 cm/sec2 MV E max [place]: 41.3 cm/sec PA V2 max: 74.0 cm/sec MV A max [place]: 49.9 cm/sec PA V2 mean: 50.4 cm/sec MV E/A: 0.83 PA mean P.1 mmHg Med Peak E' [place]: 6.9 cm/sec PA pr(Accel): 40.5 mmHg E/E' med: 6.0 Lat Peak E' [place]: 11.0 cm/sec E/E' lat: 3.7 E/e' average: 4.8 MV dec time: 0.30 sec SV(LVOT): 79.2 ml Reading Physician:09:50 PM
== END ==
PROVIDERS: PCP Family Medicine; Referring Provider Family Medicine; Visit Provider Family Medicine
DX: I08.3 Combined rheumatic disorders of mitral, aortic and tricuspid valves (principal); R79.89 Other specified abnormal findings of blood chemistry
CPT/HCPCS: 93306

== ENCOUNTER 2025-05-14 16:39 | Emergency (ER) | payer BC, SELFPAY ==
[2025-05-14] VITALS (10 sets, daily range): BP systolic 98–116; BP diastolic 59–68; PULSE 81–113; RESP 16; TEMP 36.6; O2SAT 95–100; BMI 23.3
--- NOTE | 2025-05-14 16:48 | EKG_ITS ---
[address] [address] Test Date: 2025-05-14 Pat Name: Hannah Chapin Department: Room: Gender: Female Incubator Operator: DESIRAE : 1965 Requested By: Order Number: [id number] Reading MD: Walker Glynn MD Measurements Intervals [place] Rate: 103 P: 35 ND: 136 QRS: 42 QRSD: 78 T: 42 QT: 374 QTc: 489 Interpretive Statements Sinus tachycardia Electronically Signed On 05-15-2025 10:49:20 PDT by Walker Glynn MD
--- NOTE | 2025-05-14 16:48 | DI.RAD.S_ITS ---
PROCEDURE: XR CHEST 1V INDICATIONS: Shortness of breath TECHNIQUE: One view of the chest was acquired. COMPARISON: [facility], [place], XR CHEST 1V, 04/28/2025, 15:25. [facility], [place], XR CHEST 2V, 08/23/2022, 13:46. FINDINGS AND IMPRESSION: No dense airspace disease or pleural effusions on this single view study. Normal heart size. Unremarkable osseous structures. Dictated by: Víctor Sherman M.D. on 05/14/2025 at 17:22 Approved by: Víctor Sherman M.D. on 05/14/2025 at 17:23
--- NOTE | 2025-05-14 16:51 | ED.CHESTPAIN ---
HPI - Chest Pain <Walker Ching, DO - Last Filed: 05/15/25 06:56> General Chief Complaint: Arrhythmia/Palpitations Stated Complaint: SVT episodes Time Seen by Provider: 05/14/25 16:43 History of Present Illness HPI narrative: 59-year-old female history of factor 5 Leiden, anxiety, PCOS, obstructive sleep apnea, currently being monitor for heart palpitations wearing Holter monitor for the past 2 weeks was at PCP office when she went into SVT heart rate in the 170s feeling dizzy and lightheaded brought in via EMS for further evaluation. Patient denies headache, fever, chills, stiff neck, rash, sore throat, active chest pain, shortness of breath, dyspnea on exertion, leg pain, leg swelling, recent long-distance travel. Other than what is stated 14 point review of system is negative. Related Data Home Medications ?Medication ?Instructions ?Recorded ?Confirmed atorvastatin 10 mg tablet 10 mg PO BEDTIME 10/26/22 10/31/24 diphenhydramine HCl 25 mg tablet 25 mg PO BEDTIME PRN Sleep 10/26/22 10/31/24 fluticasone propionate 50 1 spray intranasal DAILY 10/26/22 10/31/24 mcg/actuation nasal spray,suspension metoprolol succinate 25 mg 25 mg PO DAILY 10/26/22 10/31/24 tablet,extended release 24 hr spironolactone 25 mg tablet 25 mg PO DAILY 10/26/22 10/31/24 clonidine See Rx Instructions .Route .COMPLEX 10/27/22 10/31/24 clonazepam 0.5 mg tablet mg PO 10/31/24 10/31/24 guanfacine 2 mg tablet 2 mg PO DAILY 10/31/24 10/31/24 metformin 500 mg tablet,extended 500 mg PO 3XD 10/31/24 10/31/24 release 24 hr sertraline 25 mg tablet 25 mg PO DAILY 10/31/24 10/31/24 trazodone 50 mg tablet 50 mg PO ONCE PM 10/31/24 10/31/24 Previous Rx's ?Medication ?Instructions ?Recorded ciprofloxacin HCl 500 mg tablet 500 mg PO Q12H #14 tabs 10/31/24 (Cipro) phenazopyridine 200 mg tablet 200 mg PO TID PRN pain 6 doses #6 10/31/24 (Pyridium) tabs metoprolol tartrate 25 mg tablet 25 mg PO BID PRN palpitations #20 05/14/25 tabs Allergies Allergy/AdvReac Type Severity Reaction Status Date / Time sumatriptan (From Imitrex) Allergy Severe Joint Pain Verified 04/28/25 15:12 coconut Allergy Intermediate Weakness Verified 04/28/25 15:12 cafagot Allergy Severe Joint Pain Uncoded 04/28/25 15:12 Review of Systems <Walker Ching, DO - Last Filed: 05/15/25 06:56> Review of Systems ROS Unobtainable: All systems reviewed & are unremarkable except as noted in HPI and below Patient History <Walker Ching, DO - Last Filed: 05/15/25 06:56> Medical History SVT (supraventricular tachycardia) Tonsil stone Strep tonsillitis (06/2022) PCOS (polycystic ovarian syndrome) History of blood clots Depression Anxiety Tinnitus Factor V Leiden COVID-19 virus infection (06/2022) GERD (gastroesophageal reflux disease) JORGE ALBERTO on CPAP Surgical History Hx of foot surgery Social History household members: spouse Exam <Walker Ching DO - Last Filed: 05/15/25 06:56> Narrative Exam Narrative: GENERAL: [59] year old patient appears stated age. Well-developed patient, in mild distress. HEAD: Atraumatic. Normocephalic. EYES: Pupils equal round and reactive. Extraocular motions intact. No scleral icterus. No injection or drainage. ENT: Nose without bleeding, purulent drainage. Throat without erythema, tonsillar hypertrophy or exudate. Airway patent. NECK: Trachea midline. Non tender CARDIOVASCULAR: Tachycardic Regular rate and rhythm without murmurs, gallops, or rubs. RESPIRATORY: Clear to auscultation. Breath sounds equal bilaterally. No wheezes, rales, or rhonchi. GASTROINTESTINAL: Abdomen soft, non-tender, nondistended. EXTREMITIES: No edema or joint tenderness. BACK: Nontender without deformity or crepitance. No flank tenderness. NEURO: AOx3. SKIN: No rash or erythema of visible areas Initial Vital Signs Initial Vital Signs: Vital Signs Pulse Rate 106 H 05/14/25 16:44 Pulse Oximetry 97 05/14/25 16:44 <Deandra Leung MD - Last Filed: 05/14/25 20:20> Initial Vital Signs Initial Vital Signs: Vital Signs Pulse Rate 106 H 05/14/25 16:44 Pulse Oximetry 97 05/14/25 16:44 Course <Walker Ching DO - Last Filed: 05/15/25 06:56> Orders Ordered: ED Orders 05/14/25 16:48 XR chest 1V Stat Complete Blood Count AUTO DIFF Stat Comprehensive Metabolic Panel Stat Lactate (Lactic Acid) Stat NT-proBNP (BNP-Adult 18+) Stat Prothrombin Time INR Stat TSH [Thyroid Stimulating Hormone] Stat Troponin I Stat EKG-12 Lead Stat 05/14/25 16:52 CT angio chest PE protocol Stat 05/14/25 18:53 Trop I [Troponin I] Stat Vital Signs Vital signs: Vital Signs - 8 hr 05/14/25 16:44 05/14/25 16:48 05/14/25 17:00 Temperature 97.8 F Pulse Rate 106 H 113 H Respiratory Rate 16 Blood Pressure 109/66 104/60 Pulse Oximetry 97 99 Oxygen Delivery Method Room Air 05/14/25 17:00 05/14/25 17:23 05/14/25 17:23 Temperature Pulse Rate 94 H 90 Respiratory Rate Blood Pressure 98/60 Pulse Oximetry 96 95 Oxygen Delivery Method 05/14/25 17:30 05/14/25 17:30 05/14/25 18:00 Temperature Pulse Rate 85 Respiratory Rate Blood Pressure 98/59 L 106/59 L Pulse Oximetry 97 Oxygen Delivery Method 05/14/25 18:00 05/14/25 18:30 05/14/25 18:30 Temperature Pulse Rate 84 81 Respiratory Rate Blood Pressure 109/62 Pulse Oximetry 95 100 Oxygen Delivery Method 05/14/25 19:00 05/14/25 19:00 05/14/25 19:30 Temperature Pulse Rate 81 82 Respiratory Rate Blood Pressure 108/60 Pulse Oximetry 95 96 Oxygen Delivery Method 05/14/25 19:30 Temperature Pulse Rate Respiratory Rate Blood Pressure 108/63 Pulse Oximetry Oxygen Delivery Method <Deandra Leung MD - Last Filed: 05/14/25 20:20> Orders Ordered: ED Orders 05/14/25 16:48 XR chest 1V Stat Complete Blood Count AUTO DIFF Stat Comprehensive Metabolic Panel Stat Lactate (Lactic Acid) Stat NT-proBNP (BNP-Adult 18+) Stat Prothrombin Time INR Stat TSH [Thyroid Stimulating Hormone] Stat Troponin I Stat EKG-12 Lead Stat 05/14/25 16:52 CT angio chest PE protocol Stat 05/14/25 18:53 Trop I [Troponin I] Stat Vital Signs Vital signs: Vital Signs - 8 hr 05/14/25 16:44 05/14/25 16:48 05/14/25 17:00 Temperature 97.8 F Pulse Rate 106 H 113 H Respiratory Rate 16 Blood Pressure 109/66 104/60 Pulse Oximetry 97 99 Oxygen Delivery Method Room Air 05/14/25 17:00 05/14/25 17:23 05/14/25 17:23 Temperature Pulse Rate 94 H 90 Respiratory Rate Blood Pressure 98/60 Pulse Oximetry 96 95 Oxygen Delivery Method 05/14/25 17:30 05/14/25 17:30 05/14/25 18:00 Temperature Pulse Rate 85 Respiratory Rate Blood Pressure 98/59 L 106/59 L Pulse Oximetry 97 Oxygen Delivery Method 05/14/25 18:00 05/14/25 18:30 05/14/25 18:30 Temperature Pulse Rate 84 81 Respiratory Rate Blood Pressure 109/62 Pulse Oximetry 95 100 Oxygen Delivery Method 05/14/25 19:00 05/14/25 19:00 05/14/25 19:30 Temperature Pulse Rate 81 82 Respiratory Rate Blood Pressure 108/60 Pulse Oximetry 95 96 Oxygen Delivery Method 05/14/25 19:30 Temperature Pulse Rate Respiratory Rate Blood Pressure 108/63 Pulse Oximetry Oxygen Delivery Method MDM - Chest Pain <Walker Ching DO - Last Filed: 05/15/25 06:56> Lab Data 05/14/25 16:48 05/14/25 16:48 Labs: Lab Results 05/14/25 05/14/25 Range/Units 16:48 18:53 WBC 8.1 (4.5-11.0) X10^3/uL RBC 4.93 (4.0-5.2) X10^6/uL Hgb 15.1 (12.0-16.0) g/dL Hct 44.4 (36-46) % MCV 90.1 (80-100) fL MCH 30.7 (26-34) PG MCHC 34.0 (30-36) % RDW 13.9 (11.6-14.8) % Plt Count 433 H (150-400) X10^3/uL Neut % (Auto) 79.2 H (50-75) % Lymph % (Auto) 14.4 L (25-40) % [place] % (Auto) 5.0 (3-14) % Eos % (Auto) 0.6 L (2-4) % Baso % (Auto) 0.8 (0-2) % Neut # (Auto) 6400 (8823-2414) /uL Lymph # (Auto) 1200 (4580-3309) /uL [place] # (Auto) 400 (0-900) /uL Eos # (Auto) 0 (0-450) /uL Baso # (Auto) 100 (0-100) /uL PT 11.4 (9.4-12.5) SECONDS INR 1.0 (0.9-1.3) Sodium 139 (137-145) mmol/L Potassium 3.7 (3.4-5.1) mmol/L Chloride 102 (98-107) mmol/L Carbon Dioxide 22 (22-32) mmol/L BUN 15 (7-17) mg/dL Creatinine 0.75 (0.52-1.04) mg/dL Estimated GFR > 60 (>60) mL/min BUN/Creatinine Ratio 20.0 (6-22) Glucose 101 H (70-99) mg/dL Lactate 1.4 (0.7-2.1) mmol/L Calcium 10.1 (8.4-10.2) mg/dL Total Bilirubin 0.9 (0.2-1.3) mg/dL AST 32 (14-36) IU/L ALT 23 (<35) IU/L Alkaline Phosphatase 76 (38-126) U/L Troponin I < 0.012 0.017 (0.01-0.034) ng/mL NT-Pro-B Natriuret Pep 335 H (<125) pg/mL Total Protein 8.6 H (6.3-8.2) g/dL Albumin 5.1 H (3.5-5.0) g/dL Globulin 3.5 (1.7-4.1) g/dL Albumin/Globulin Ratio 1.5 (1.0-2.8) TSH 0.684 (0.47-4.68) uIU/mL Imaging Data CT scan - chest: Radiologist's Impression: [address] [address] [address] Scan Report Signed Patient: Hannah Chapin MR#: [id number] : 1965 Acct:[id number] Age/Sex: 59 / F Date of Service: 05/14/25 Loc: ED Accession Number: [id number] Procedure: CT angio chest PE protocol Ordering Provider: Walker Ching D.O. PROCEDURE: CT ANGIO CHEST PE PROTOCOL INDICATIONS: SVT /hx of factor 5 leiden TECHNIQUE: After the administration of intravenous contrast, 2 mm thick sections acquired from the pulmonary apices to the posterior costophrenic angles. 3-dimensional maximum intensity projection (MIP) coronal and sagittal reformats were then acquired through the thorax. For radiation dose reduction, the following was used: automated exposure control, adjustment of mA and/or kV according to patient size. COMPARISON: None. FINDINGS: Image quality: Diagnostic. Pulmonary arteries: Main pulmonary artery is mildly dilated at 3.1 cm. , and demonstrate no intraluminal filling defects to suggest central pulmonary embolism. Lower Neck: No enlarged lymph nodes. Thyroid: No thyroid nodules which require sonographic follow up, per consensus guidelines. Axillae: No enlarged lymph nodes. Chest Wall: Soft tissue density in the left breast, correlate with recent mammogram. Bones: Unremarkable. Lungs and Pleura: No pneumothorax or pleural effusions. Right lower lobe pulmonary nodule measuring 4 mm (5/106). Heart: Heart size is normal. No pericardial effusion. Thoracic Vessels: No aortic aneurysm. Mediastinum and Sho: No enlarged lymph nodes. Esophagus: No wall thickening. No hiatal hernia. Upper Abdomen: Partially visualized right hydronephrosis versus peripelvic cyst. IMPRESSION: No pulmonary embolus. No acute cardiopulmonary process. Right lower lobe pulmonary nodule measuring 4 mm. Main pulmonary artery is mildly dilated measuring 3.1 cm, may represent pulmonary hypertension. ECG Data Interpretation: Sinus Tach HR 103 NV 136 QRS [address]-t wave change Unchanged from 04/28/25 MDM Narrative Medical decision making narrative: All lab work, vital signs, nurse triage note, medication list, previous ER visits and all imaging studies reviewed. CTA showed no PE, no acute democrat cardiopulmonary process, right lower lobe pulmonary nodule measuring 4 mm. Main pulmonary artery is mildly dilated at 3.1 cm may represent pulmonary hypertension. Normal white count 8.1. Platelet 433. First set troponin less than 0.012. BNP 335. TSH 0.684 EKG showed sinus tachycardia [address] T wave changes <Deandra Leung MD - Last Filed: 05/14/25 20:20> Lab Data Labs: Lab Results 05/14/25 05/14/25 Range/Units 16:48 18:53 WBC 8.1 (4.5-11.0) X10^3/uL RBC 4.93 (4.0-5.2) X10^6/uL Hgb 15.1 (12.0-16.0) g/dL Hct 44.4 (36-46) % MCV 90.1 (80-100) fL MCH 30.7 (26-34) PG MCHC 34.0 (30-36) % RDW 13.9 (11.6-14.8) % Plt Count 433 H (150-400) X10^3/uL Neut % (Auto) 79.2 H (50-75) % Lymph % (Auto) 14.4 L (25-40) % [place] % (Auto) 5.0 (3-14) % Eos % (Auto) 0.6 L (2-4) % Baso % (Auto) 0.8 (0-2) % Neut # (Auto) 6400 (6199-3273) /uL Lymph # (Auto) 1200 (7879-4409) /uL [place] # (Auto) 400 (0-900) /uL Eos # (Auto) 0 (0-450) /uL Baso # (Auto) 100 (0-100) /uL PT 11.4 (9.4-12.5) SECONDS INR 1.0 (0.9-1.3) Sodium 139 (137-145) mmol/L Potassium 3.7 (3.4-5.1) mmol/L Chloride 102 (98-107) mmol/L Carbon Dioxide 22 (22-32) mmol/L BUN 15 (7-17) mg/dL Creatinine 0.75 (0.52-1.04) mg/dL Estimated GFR > 60 (>60) mL/min BUN/Creatinine Ratio 20.0 (6-22) Glucose 101 H (70-99) mg/dL Lactate 1.4 (0.7-2.1) mmol/L Calcium 10.1 (8.4-10.2) mg/dL Total Bilirubin 0.9 (0.2-1.3) mg/dL AST 32 (14-36) IU/L ALT 23 (<35) IU/L Alkaline Phosphatase 76 (38-126) U/L Troponin I < 0.012 0.017 (0.01-0.034) ng/mL NT-Pro-B Natriuret Pep 335 H (<125) pg/mL Total Protein 8.6 H (6.3-8.2) g/dL Albumin 5.1 H (3.5-5.0) g/dL Globulin 3.5 (1.7-4.1) g/dL Albumin/Globulin Ratio 1.5 (1.0-2.8) TSH 0.684 (0.47-4.68) uIU/mL MDM Narrative Medical decision making narrative: All lab work, vital signs, nurse triage note, medication list, previous ER visits and all imaging studies reviewed. CTA showed no PE, no acute democrat cardiopulmonary process, right lower lobe pulmonary nodule measuring 4 mm. Main pulmonary artery is mildly dilated at 3.1 cm may represent pulmonary hypertension. Normal white count 8.1. Platelet 433. First set troponin less than 0.012. BNP 335. TSH 0.684 EKG showed sinus tachycardia [address] T wave changes Dr Leung. Care is assumed, chart is independently evaluated, results reviewed, patient is independently examined 59-year-old perimenopausal woman with factor 5 Leiden deficiency comes in with increasing palpitations today at least 2 episodes associated with near-syncope. Is seen by Dr. Purcell and currently has a Zio patch in place. Was reportedly in his office this afternoon when she had another recurrent episode of the palpitations that was a supraventricular tachycardia. This had resolved by the time she got to the emergency department and she was in a simple sinus tachycardia. Workup as described above is unremarkable. First and 2nd troponin remain unremarkable. She has remained in a sinus rhythm since arrival in the emergency department We discussed using metoprolol as needed when she has days with increasing episodes of palpitations. She currently has metoprolol succinate, we will give her a prescription for metoprolol tartrate still at 25 mg. Did review with her the difference between the 2 medications even though the name is same. Thyroid studies are unremarkable. She is perimenopausal which may be part of the reason she is having increasing symptoms now. With bath you are 5 Leiden deficiency she is only on vaginal estrogen, trial of progesterone maybe helpful to see if for reduces any of the symptoms. She is seeing Dr. Carmona for complex ovarian cyst and I suggested she discuss this further with her. Reviewed simple abortive measures for SVT including I am taking up to 2 doses of metoprolol tartrate 25 mg in a day. She does have a follow up appointment with her primary care physician upcoming and is safe for discharge home. There was no indication for hospitalization. Discharge Plan Departure Patient Disposition: Home Clinical Impression: Supraventricular tachycardia, Incidental pulmonary nodule Instructions: DI for Paroxysmal Supraventricular Tachycardia Activity Restrictions/Additional Instructions: Thank you for coming in today You were in a supraventricular tachycardia. Given you some written information on this above including techniques for increasing intra-abdominal pressure to try and stop this abnormal rhythm. This rhythm is not life-threatening but certainly can be annoying particularly when it is causing you to almost pass out. You can use metoprolol to help keep your heart rate from going too fast in the 1st place. You currently have a prescription for metoprolol succinate which is the long-acting version. I am going to suggest that you try the short-acting version, [facility], as needed. It can be taken up to twice a day You will need follow up with Dr. Purcell with the results of the Zio patch and discussion of possible cardiology referral. You had mentioned your mother had WPW and needed an ablation. The echocardiogram you had done today showed sinus tachycardia at a rate of 103 with no suggestion of WPW. When you see Dr. Carmona regarding your complex ovarian cyst, discuss with her possibility of adding oral progesterone to your vaginal estrogen to see if perimenopausal symptoms may be contributing to the increase in episodes of SVT you seem to be experiencing. If you find that you are getting worse or develop any new symptoms, please feel free to return to the emergency department for further evaluation. Prescriptions: New metoprolol tartrate 25 mg tablet 25 mg PO BID PRN (Reason: palpitations) Qty: 20 0RF No Action clonazepam 0.5 mg tablet PO metformin 500 mg tablet extended release 24 hr 500 mg PO 3XD guanfacine 2 mg tablet 2 mg PO DAILY sertraline 25 mg tablet 25 mg PO DAILY trazodone 50 mg tablet 50 mg PO ONCE PM phenazopyridine [Pyridium] 200 mg tablet 200 mg PO TID PRN (Reason: pain) Qty: 6 0RF ciprofloxacin HCl [Cipro] 500 mg tablet 500 mg PO Q12H Qty: 14 0RF atorvastatin 10 mg Tablet 10 mg PO BEDTIME spironolactone 25 mg Tablet 25 mg PO DAILY diphenhydramine HCl 25 mg Tablet 25 mg PO BEDTIME PRN (Reason: Sleep) metoprolol succinate 25 mg Tablet Extended Release 24 Hr 25 mg PO DAILY fluticasone propionate 50 mcg/actuation [place],Suspension 1 spray INTRANASAL DAILY Rx Instructions: administer into each nostril clonidine See Rx Instructions .ROUTE .COMPLEX Rx Instructions: depression Referrals: Francisco Purcell MD [Primary Care Provider, Family Practice] Stand Alone Forms: Patient Portal/API
[2025-05-14 16:57] LABS: Add Manual Diff / Slide Review NO; Hematocrit 44.4 % (36-46); Hemoglobin 15.1 g/dL (12.0-16.0); Lymphocytes Absolute Auto 1200 /uL (1100-4500); Mean Corpuscular HGB Conc 34.0 % (30-36); Mean Corpuscular Hemoglobin 30.7 PG (26-34); Mean Corpuscular Volume 90.1 fL (80-100); Platelet Count 433 X10^3/uL (150-400)
[2025-05-14 17:06] LABS: INR 1.0 (0.9-1.3); Prothrombin Time 11.4 SECONDS (9.4-12.5)
[2025-05-14 17:12] LABS: Lactate (Lactic Acid) 1.4 mmol/L (0.7-2.1)
[2025-05-14 17:13] LABS: Alanine Aminotransferase 23 IU/L (<35); Albumin 5.1 g/dL (3.5-5.0); Albumin Globulin Ratio 1.5 (1.0-2.8); Alkaline Phosphatase 76 U/L (38-126); Blood Urea Nitrogen 15 mg/dL (7-17); Calcium 10.1 mg/dL (8.4-10.2); Carbon Dioxide 22 mmol/L (22-32); Chloride 102 mmol/L (98-107); Estimated Glomerular Filt Rate > 60 mL/min (>60); Globulin 3.5 g/dL (1.7-4.1); Glucose 101 mg/dL (70-99); HEMOLYSIS < 15 (0-50); Potassium 3.7 mmol/L (3.4-5.1); Sodium 139 mmol/L (137-145); Total Protein 8.6 g/dL (6.3-8.2)
[2025-05-14 17:24] LABS: NT-proBNP (BNP-Adult 18+) 335 pg/mL (<125); Troponin I < 0.012 ng/mL (0.01-0.034)
[2025-05-14 17:44] LABS: Thyroid Stimulating Hormone 0.684 uIU/mL (0.47-4.68)
[2025-05-14 19:25] LABS: Troponin I 0.017 ng/mL (0.01-0.034)
== END 2025-05-14 20:32 | disposition home or self-care (01) ==
PROVIDERS: Family Medicine; Emergency Provider Emergency Medicine; PCP Family Medicine
DX: I47.10 Supraventricular tachycardia, unspecified (principal); R91.1 Solitary pulmonary nodule
CPT/HCPCS: 71045; 71275; 80053; 83605; 83880; 84443; 84484; 85025; 85610; 93005; 93010; 99283; 99284; Q9967

== ENCOUNTER → 2025-09-08 12:19 | Outpatient (CLI) | payer BC, SELFPAY | PROVIDERS: PCP Family Medicine; Visit Provider Physician Assistant | DX: J02.9 Acute pharyngitis, unspecified (principal) | CPT/HCPCS: 87070 ==